=== PATIENT | female | born 1955 | race Caucasian/White ===

== ENCOUNTER → 2016-11-07 | Outpatient (CLI) | payer OTHER ==
[~2016-11-07] MED LIST: ATARAX PO; BACLOFEN20 MG PO; BENZONATATE PO; CLARITIN10 M2 PO; CYMBALTA; DOXYCYCLINE HY100 M3 PO; HYDROCODON-ACE1 EAC9 PO; LEXAPRO PO; NAPROSYN500 MG PO; NEURONTIN300 MG PO; PREDNISOLONE5 MG PO; ROBAXIN500 MG PO; ROBITUSSIN A-C S5 ML PO; SEROQUEL; TRAMADOL HCL50 M1 PO; VOLTAREN75 MG PO
--- NOTE | ~2016-11-07 | CT2 ---
[facility] A Service of [facility] RADIOLOGY TEXT RESULTS PATIENT: JULIO JACQUES LOCATION: [facility] : 59 UNIT #: [id number] AGE: [address]: ANDRE SLATER SEX: F ORDER DR: [id number] [address] [address] [id number] O MR#: [id number] Acc #: [id number] NAME: JULIO JACQUES : 1955 SEX: F STUDY DATE/TIME: 11/07/2016 16:39 UNIT: [facility] ROOM: STUDY DESCRIPTION: CT Abd and Pelv W Cont Attending Physician: Andre Slater Aprn Referring Physician: Andre Slater Aprn Ordering Physician: Andre Slater Aprn Primary Care Physician: Robert Broussard D.O. MEDICAL IMAGING REPORT This report is preliminary unless electronic signature is present. EXAM CT of the abdomen and pelvis with IV contrast media. DATE OF EXAM 11/07/2016 HISTORY Left-sided abdominal and pelvic pain for 3 days with nausea, vomiting and diarrhea. TECHNIQUE Transaxial imaging of the abdomen and pelvis was obtained with IV contrast media. NOTE: This CT exam was performed with one or more of the following radiation dose reduction techniques: automatic exposure control, adjustment of mA and/or kV according to patient size, and iterative reconstruction. COMPARISON There are no previous CTs of the abdomen and pelvis for comparison. FINDINGS Lung bases appear unremarkable. Scans through the liver show some hepatic steatosis. Gallbladder is normal. Spleen is normal. The adrenal glands do not appear enlarged. The pancreas is normal. Both right and left kidney are normal. The appendix is normal. There is sigmoid diverticulosis present. There is inflammation of the sigmoid colon wall with colon thickening and surrounding inflammation in the adjacent fat. This involves a relatively short segment of the colon extending over about 6 cm. There is no evidence of a discrete abscess. The uterus is absent. There are no adnexal masses. There are no definite fluid collections. Bony elements are unremarkable. CONCLUSION [facility] A Service of [facility] RADIOLOGY TEXT RESULTS PATIENT: JUL[id number] 59 UNIT #: [id number] AGE: [address]: ANDRE SLATER SEX: F ORDER DR: 1. Mild hepatic steatosis. 2. Diverticulosis with sigmoid diverticulitis involving about a 6-7 cm segment in the sigmoid region, adjacent edema in the fat, but no evidence of discrete abscess. Postop changes of prior hysterectomy. Dictated by... Shay Land M.D. THIS IS AN ELECTRONICALLY VERIFIED REPORT Shay Land M.D. at 11/10/2016 2:44 PM LOYD/atif TD: 11/07/2016 22:49 JOB #: [id number] MEDICAL IMAGING REPORT Page 1 of 1
[2016-11-07 15:45] LABS: POC - CREATININE 0.72 mg/dL (0.44-1.03); POC - GFR >60.0 mL/min (>60)
== END | disposition home or self-care (01) ==
LOC: SCT 15:11
PROVIDERS: Nurse Practitioner Family
DX: R10.9 Unspecified abdominal pain (principal); K57.92 Diverticulitis of intestine, part unspecified, without perforation or abscess without bleeding; K57.90 Diverticulosis of intestine, part unspecified, without perforation or abscess without bleeding
CPT/HCPCS: 74177; 82565; Q9967